=== PATIENT | female | born 1960 | race Caucasian/White ===

== ENCOUNTER 2023-06-25 20:06 | Observation (INO) | payer BC ==
[~2023-06-25] VITALS: Ht 167.6 cm; Wt 104.0 kg
[2023-06-25] VITALS (12 sets, daily range): BP systolic 85–135; BP diastolic 53–80
[2023-06-25 21:33] LABS: BASO% 0.1 % (0-3); EOS% 2.4 % (0-8); HEMATOCRIT 37.2 % (37.0-47.0); IMMATURE GRANULOCYTES 0.1 % (0.0-5.0); LYMPH% 11.3 % (15-41); MEAN CELL VOLUME 87.1 fL CALC (80.0-100.0); MEAN CORPUSCULAR HGB 28.1 pG CALC (26.0-32.0); MEAN CORPUSCULAR HGB CONC 32.3 g/dL CAL (32.0-36.0); MONO% 4.7 % (2-13); NEUT# 8.1 thou/uL (2.00-7.15); NEUT% 81.4 % (42-76); RED BLOOD COUNT 4.27 mill/uL (4.20-5.60); RED CELL DISTRI WIDTH 12.9 % (11.5-15.5)
[2023-06-25 21:43] LABS: ALBUMIN 4.6 g/dL (3.2-5.0); ALKALINE PHOSPHATASE 89 u/l (38-126); ANION GAP 13 (6-22 (CALC)); BILIRUBIN, TOTAL 0.6 mg/dL (0.02-1.3); BUN 22 mg/dL (7-17); BUN/CREATININE RATIO 18 (12-20 (CALC)); CARBON DIOXIDE 25 mmol/l (22-30); CHLORIDE 102 mmol/l (95-108); CREATININE 1.2 mg/dL (0.5-1.0); GFR FOR AFR.AMER. 55 ML/MIN (>=60 (CALC)); GFR OTHER RACES 46 ML/MIN (>=60 (CALC)); POTASSIUM 4.1 mmol/l (3.5-5.1); SGOT/AST 26 u/l (14-36); SODIUM 135 mmol/l (137-146)
[2023-06-25] MEDS ORDERED: PROZAC20 MG PO (22:32)
[2023-06-25] MEDS ORDERED: METFORMIN500 M2 PO (22:32)
[2023-06-25] MEDS ORDERED: SINGULAIR10 MG PO (22:33)
[2023-06-25] MEDS ORDERED: SIMVASTATIN40 MG PO (22:33)
[2023-06-25] MEDS ORDERED: PROTONIX40 M2 PO (22:34)
[2023-06-26 03:16] VITALS: BP 114/54
[2023-06-26 05:50] VITALS: BP 114/54
[2023-06-26 06:25] VITALS: BP 98/52
[2023-06-26 10:45] VITALS: BP 109/49
[2023-06-26 14:45] VITALS: BP 128/64
[2023-06-26 19:29] VITALS: BP 128/64
[2023-06-27 04:39] VITALS: BP 133/67
[2023-06-27 07:31] VITALS: BP 116/60
[2023-06-27 11:59] VITALS: BP 138/77
[2023-06-27] MEDS ORDERED: ATORVASTATIN CA40 MG PO (14:38)
[2023-06-27] MEDS ORDERED: ADLT ASA LOW81 MG PO (14:38)
[2023-06-27] MEDS ORDERED: LOSARTAN POTASS25 MG PO (14:38)
== END 2023-06-27 14:55 | disposition home or self-care (01) | DRG 313 ==
LOC: ED 20:06 → ED-I 22:00 → ED 22:22 → MS2 22:23
PROVIDERS: Emergency Medicine; ADMIT Student in an Organized Health Care Education/Training Program; ATTEND Student in an Organized Health Care Education/Training Program
DX: R07.9 Chest pain, unspecified (principal); K21.9 Gastro-esophageal reflux disease without esophagitis; I10 Essential (primary) hypertension; E78.00 Pure hypercholesterolemia, unspecified; F32.A Depression, unspecified; J45.909 Unspecified asthma, uncomplicated; Z20.822 Contact with and (suspected) exposure to COVID-19
CPT/HCPCS: G0378